=== PATIENT | female | born 1955 | race Caucasian/White ===

== ENCOUNTER → 2018-12-18 | Outpatient (CLI) | payer OTHER | LOC: BMCIMAGING 08:28 | DX: Z12.31 Encounter for screening mammogram for malignant neoplasm of breast (principal); Z80.3 Family history of malignant neoplasm of breast ==

== ENCOUNTER → 2018-12-22 | Outpatient (CLI) | payer OTHER | LOC: BMCIMAGING 10:33 | DX: R92.8 Other abnormal and inconclusive findings on diagnostic imaging of breast (principal) ==